=== PATIENT | female | born 1940 | race Caucasian/White ===

== ENCOUNTER → 2019-10-23 | Outpatient (CLI) | payer MEDICARE ==
[2019-05-29 11:00] VITALS: BP 116/63
[~2019-10-23] MED LIST: ACET325T9 PO; ALEN70TA6 PO; ANAS1TAB PO; ASPI-482 PO; BISA-42 PO; CALC1TAB PO; FERR-36 PO; FURO40TA4 PO; LISI10TA2 PO; LOVA40TA2 PO; METO-239 PO; MULT-658 PO; NIAC-9 PO; NITR0.4T22 SL; OMEG1CAP27 PO; PANT40TA77 PO; POLY15DR27 OU; POTA10TA12 PO; PROP15DR EACHEYE
[2019-10-23 09:49] LABS: BASO % 1 % (0-3); EOS % 1 % (0-3); HEMATOCRIT 39.1 % (36.0-47.0); HEMOGLOBIN 13.1 g/dL (12.0-15.5); LYMPH # 1.2 x10^3/uL (1.0-4.8); LYMPH % 36 % (24-48); MEAN CORPUSCULAR HEMOGLOBIN 30 pg (25-35); MEAN CORPUSCULAR HGB CONC 33 g/dL (31-37); MEAN CORPUSCULAR VOLUME 91 fL (79-100); MONO # 0.4 x10^3/uL (0.0-1.1); MONO % 10 % (0-9); NEUT # 1.7 x10^3/uL (1.8-7.7); NEUT % 52 % (31-73); PLATELET COUNT 224 x10^3/uL (140-400); RED BLOOD COUNT 4.32 x10^6/uL (3.50-5.40); RED CELL DISTRIBUTION WIDTH 14.5 % (11.5-14.5); WHITE BLOOD COUNT 3.4 x10^3/uL (4.0-11.0)
== END ==
LOC: ONCLAB 09:21
PROVIDERS: ATTEND Internal Medicine Hematology & Oncology
DX: D50.9 Iron deficiency anemia, unspecified (principal)
CPT/HCPCS: 36415; 82728; 83540; 83550; 85025

== ENCOUNTER → 2019-12-05 | Outpatient (CLI) | payer MEDICARE ==
[2019-05-29 11:00] VITALS: BP 116/63
--- NOTE | 2019-12-05 11:28 | CARD ---
MR#: [id number] Date of Study: 12/05/2019 Ordering Physician: SHELDON VEE, Referring Physician: SHELDON VEE, Tech: Georgie Bryant APPROVED REPORT EXAM: Two-dimensional and M-mode echocardiogram with Doppler and color Doppler. Other Information Quality : AverageHR: 62bpm Technically limited study due to body habitus. INDICATION Aortic Valve Disease Hernia surgery -2019, Aortic Aneurysm Surgery/Intervention CABG: Date: 2006 Site: [facility] RISK FACTORS Hypertension Hyperlipidemia 2D DIMENSIONS RVDd2.8 (2.9-3.5cm)Left Atrium(2D)4.6 (1.6-4.0cm) IVSd0.8 (0.7-1.1cm)Aortic Root(2D)3.9 (2.0-3.7cm) LVDd5.2 (3.9-5.9cm)LVOT Diameter2.2 (1.8-2.4cm) PWd0.7 (0.7-1.1cm)LVDs3.9 (2.5-4.0cm) FS (%) 25.5 %SV65.8 ml LVEF(%)49.8 (>50%) Aortic Valve AoV Peak Maico.140.1cm/sAoV VTI29.7cm AO Peak GR.7.9mmHgLVOT Peak Maico.108.0cm/s LVOT VTI 23.91cmAO Mean GR.4mmHg MILENA (VMAX)2.08ho1HUH (VTI)3.07cm2 AI P 1/2 Uvzq212fr Mitral Valve MV E Qkjmvycv36.4cm/sMV E Peak Gr.144mmHg MV DECEL [id number] A Roosezfj27.3cm/s MV E Mean Gr.2mmHgMV DCM64xh E/A Ratio0.4MVA (PHT)2.85cm2 TDI E/Lateral E'6.9E/Medial E'7.5 Pulmonary Valve PV Peak Kgsuukvf41.7cm/sPV Peak Grad.3mmHg Tricuspid Valve TR P. Vzvbrmsy331hm/sRAP NQORHVFX5qdVv TR Peak Gr.50dpWfQHYU04ozKg Pulmonary Vein S1 Nrgcietu14.2cm/sD2 Qllktejc08.2cm/s PVa tvqtklxt101auvm LEFT VENTRICLE The left ventricle is normal size. There is normal left ventricular wall thickness. The left ventricu lar systolic function is normal and the ejection fraction is within normal range. The Ejection Fracti on is 55%. Septal motion consistent with prior CABG. Otherwise, grossly normal wall motion. Transmitr al Doppler flow pattern is Grade I-abnormal relaxation pattern. RIGHT VENTRICLE The right ventricle is mildly dilated. There is normal right ventricular wall thickness. The right ve ntricular systolic function is normal. ATRIA The left atrium size is normal. The right atrium size is normal. The interatrial septum is intact wit h no evidence for an atrial septal defect or patent foramen ovale as noted on 2-D or Doppler imaging. AORTIC VALVE The aortic valve is calcified but opens well. Doppler and Color Flow revealed mild to moderate aortic regurgitation. There is no significant aortic valvular stenosis. Calculated aortic valve area is 2.9 7 cm2 with maximum pressure gradient of 8 mmHg and mean pressure gradient of 4 mmHg. MITRAL VALVE The mitral valve is normal in structure and function. There is no evidence of mitral valve prolapse. There is no mitral valve stenosis with an mean gradient of 2 mmHg. Doppler and Color-flow revealed mi ld mitral regurgitation. TRICUSPID VALVE The tricuspid valve is normal in structure and function. Doppler and Color Flow revealed trace to mil d tricuspid regurgitation with an estimated PAP of 32 mmHg. There is no tricuspid valve stenosis. PULMONIC VALVE The pulmonic valve is not well visualized. Doppler and Color Flow revealed trace pulmonic valvular re gurgitation. There is no pulmonic valvular stenosis. GREAT VESSELS The aortic root is mildly enlarged. The ascending aorta is Mildly dilated at 4.0 cm The IVC was not v isualized. PERICARDIAL EFFUSION There is no evidence of significant pericardial effusion. Critical Notification Critical Value: No <Conclusion> The left ventricular systolic function is normal and the ejection fraction is within normal range. Th e Ejection Fraction is 55%. Septal motion consistent with prior CABG. Otherwise, grossly normal wall motion. Doppler and Color Flow revealed mild to moderate aortic regurgitation. Doppler and Color Flow revealed trace to mild tricuspid regurgitation with an estimated PAP of 32 mmH g. The ascending aorta is Mildly dilated at 4.0 cm Signed by : Sheldon Katrapati, Electronically Approved : 12/05/2019 11:28:10
== END | disposition home or self-care (01) ==
LOC: ECHO 09:17
PROVIDERS: ATTEND Internal Medicine Cardiovascular Disease
DX: I08.3 Combined rheumatic disorders of mitral, aortic and tricuspid valves (principal); I71.2 Thoracic aortic aneurysm, without rupture
CPT/HCPCS: 93306

== ENCOUNTER → 2020-06-05 | Outpatient (CLI) | payer MEDICARE ==
[2019-05-29 11:00] VITALS: BP 116/63
[~2020-06-05] MED LIST changes: -ALEN70TA6 PO; +ALEN70TA71 PO; +CONTRAST GIVEN. MC PRN; +IOHEXOL 350 MG/ML 100 ML VIAL. IV ONE; +IOHEXOL 350 MG/ML 100 ML VIAL. ONE; +LISI10TA16 PO; -LISI10TA2 PO
[2020-06-05 11:37] LABS: CREATININE 1.1 mg/dL (0.6-1.0); GFR 47.9
--- NOTE | 2020-06-05 12:35 | RAD ---
CT angiography of the chest 06/05/2020 INDICATION: Ascending thoracic aortic aneurysm COMPARISON STUDY: CT of the chest without contrast May 22, 2019 TECHNIQUE: Multidetector CTA imaging of the chest was performed following the administration of IV co ntrast. 3-D reconstructions of thoracic vasculature were created on an independent workstation and re viewed. FINDINGS: There is an ascending thoracic aortic aneurysm measuring 4.2 cm the level the main pulmonar y artery. The thoracic aorta measures 3.4 cm at the sinotubular junction. The thoracic aorta measures 2.6 cm at the level of the left subclavian artery. The descending thoracic aorta is normal in course and caliber. There is no dissection. There is a "bovine" configuration of the aortic arch. Arch vess els. Be grossly patent. There is some kinking of the left common carotid artery secondary to tortuosi ty. More mild kinking of the right brachiocephalic artery is also present. Heart size is normal. No pericardial effusion is seen. [place] coronary calcification is noted. CORTES t o LAD bypass noted. Note patency of this bypass is not assessed via this exam. No pathologically enla rged mediastinal lymph nodes are seen. Mild dilatation of the bilateral proximal pulmonary arteries i s seen which can be associated pulmonary arterial hypertension. There is no pneumothorax or pleural e ffusion. No acute-appearing pulmonary infiltrates are identified. There are scattered solid and groun dglass nodular opacities, all which are less than 1 cm in size, in the basilar left lower lobe. Refer ence images in the seen anteriorly on axial image 80. Multiple similar nodules can be seen immediatel y inferior to this. There is a reference 2 mm nodule in the right upper lobe (axial image 25). Scatte red 5 mm groundglass and smaller nodules are seen throughout the right lower lobe and to a lesser deg ree the right upper lobe. Reference nodule can be seen on axial image 53. The previously seen large h iatal/paraesophageal hernia is reduced in the interim. No acute changes in the upper abdomen are karyna ntified. No acute osseous changes are identified. IMPRESSION: 1. Ascending thoracic aortic aneurysm measuring 4.2 cm the level of main pulmonary artery 2. Interval reduction of the previously seen large hiatal/paraesophageal hernia 3. Scattered bilateral, sub-5 mm groundglass pulmonary nodules. The appearance is similar to comparis on study. Findings could represent infectious or inflammatory process, given short interval between s tudies. Consider 3 month follow-up CT chest. 4. Mild dilatation of the pulmonary arteries. A component of pulmonary hypertension may be present. CT DOSING PQRS STATEMENT: One or more of the following individualized dose reduction techniques were utilized for this examinat ion: 1. Automated exposure control 2. Adjustment of the mA and/or kV according to patient size 3. Use of iterative reconstruction technique Electronically signed by: Marciano Cole MD (06/05/2020 12:33 PM) [id number]
== END ==
LOC: CT 09:57
PROVIDERS: ATTEND Internal Medicine Cardiovascular Disease
DX: I71.2 Thoracic aortic aneurysm, without rupture (principal); R91.1 Solitary pulmonary nodule
CPT/HCPCS: 36415; 71275; 82565; 84520; Q9967

== ENCOUNTER → 2020-07-29 | Outpatient (CLI) | payer MEDICARE ==
[2019-05-29 11:00] VITALS: BP 116/63
[~2020-07-29] MED LIST changes: -CONTRAST GIVEN. MC PRN; -IOHEXOL 350 MG/ML 100 ML VIAL. IV ONE; -IOHEXOL 350 MG/ML 100 ML VIAL. ONE
--- NOTE | 2020-08-01 12:24 | RAD ---
INDICATION: 79 years of age asymptomatic female patient presents for screening mammography. TECHNIQUE: Full field craniocaudal and mediolateral oblique images of both breasts were obtained usi ng digital technique with tomosynthesis and also analyzed with computer-aided detection software. COMPARISON: 06/28/2009. BREAST COMPOSITION: Category B: There are scattered fibroglandular densities. FINDINGS: Benign calcifications are present. The parenchymal pattern appears stable. No suspicious masses, microcalcifications or architectural distortion is present to suggest malignanc y in either breast. The visualized axillae are unremarkable. IMPRESSION: No mammographic evidence of malignancy. RECOMMENDATION: Annual screening mammography is recommended, unless clinically indicated sooner based on symptoms or change in physical exam. BIRADS 2: BENIGN This study was interpreted with the benefit of Computerized Aided Detection (CAD). Patient information is entered into the reminder system with a target due date for the next screening mammogram. Mammography is the most sensitive method for finding small breast cancers, but it does not detect the m all and is not a substitute for careful clinical examination. A negative mammogram does not negate a clinically suspicious finding and should not result in delay in biopsying a clinically suspicious a bnormality. "Our facility is accredited by the [employer] Mammography Program." Electronically signed by: Adolfo Medina MD (08/01/2020 12:21 PM) [facility]
== END ==
LOC: MAMMO 09:52
PROVIDERS: ATTEND Internal Medicine Hematology & Oncology
DX: Z12.31 Encounter for screening mammogram for malignant neoplasm of breast (principal)
CPT/HCPCS: 77063; 77067

== ENCOUNTER → 2021-01-08 | Outpatient (CLI) | payer MEDICARE ==
[2019-05-29 11:00] VITALS: BP 116/63
--- NOTE | 2021-01-08 12:24 | RAD ---
EXAM: CT OF THE CHEST WITHOUT CONTRAST. HISTORY: Ascending aortic aneurysm. TECHNIQUE: Computed tomography of the chest was performed without intravenous contrast. One or more o f the following individualized dose reduction techniques were utilized for this examination: 1. Automated exposure control. 2. Adjustment of the mA and/or kV according to patient size. 3. Use of iterative reconstruction technique. COMPARISON: 06/05/2020. FINDINGS: Images of the upper abdomen reveal a benign-appearing cyst in the left kidney measuring 3.0 cm. Bilateral hydronephrosis is mild to moderate. The gallbladder is surgically absent. A small hiat al hernia age contains mostly fat. There is some wall thickening of the distal esophagus. Bone window s reveal no suspicious lesions. The ascending aorta measures 4.5 x 4.3 cm. There is no clear interval change. The proximal arch measu res 4.1 cm. The distal arch measures 2.9 cm. The distal arch measures 2.7 cm. There are no pathologically enlarged mediastinal or axillary lymph nodes. There is no pleural or jason cardial effusion. The heart is not enlarged. There are changes of coronary artery bypass grafting. A 4 mm nodule in the right lower lobe on image 39 is stable. Another in the left lower lobe on image 46 measures 5 mm. Several other small groundglass nodules throughout the other lobes measure <4 mm. T here is a calcified granuloma in the left upper lobe. IMPRESSION: 1. Stable ascending aortic ectasia at 0.5 x 4.3 cm. 2. Scattered bilateral small groundglass nodules measure 5 mm or less, are stable and likely postinfl ammatory. Attention on further follow-up. 3. Bilateral mild to moderate hydronephrosis. CT of the abdomen/pelvis could further evaluate if the diagnosis is not already known. 4. Small hiatal hernia. Wall thickening of the distal esophagus suggests esophagitis. Electronically signed by: Miranda Levin MD (01/08/2021 12:21 PM) [id number]
== END ==
LOC: CT 08:33
PROVIDERS: ATTEND Internal Medicine Cardiovascular Disease
DX: I71.2 Thoracic aortic aneurysm, without rupture (principal); J84.10 Pulmonary fibrosis, unspecified; K44.9 Diaphragmatic hernia without obstruction or gangrene; N13.30 Unspecified hydronephrosis; Z90.49 Acquired absence of other specified parts of digestive tract; Z95.1 Presence of aortocoronary bypass graft
CPT/HCPCS: 71250

== ENCOUNTER → 2021-07-02 | Outpatient (CLI) | payer BC, MEDICARE ==
[2019-05-29 11:00] VITALS: BP 116/63
[~2021-07-02] MED LIST changes: +REGADENOSON 0.4 MG/5 ML DISP.SYRIN. IV ONE
--- NOTE | 2021-07-02 16:22 | RAD ---
MR#: [id number] Date of Study: 07/02/2021 Ordering Physician: SHELDON VEE, Referring Physician: AMAN HANLEY Tech: RT Emma (R) (N) APPROVED REPORT Test Type: Pharmacological Stress Nurse/Tech: Jaime Skinner RN Test Indications: CAD Cardiac History: CABG 2006, HTN Medications: See Electronic Medical Record Medical History: See Electronic Medical Record Resting ECG: SR Resting Heart Rate: 66 bpm Resting Blood Pressure: 161/53mmHg Pretest Chest Pain: None Nurse/Tech Notes Lungs CTA, S1S2 Consent: The procedure was explained to the patient in lay terms. Informed consent was witnessed. Robert eout was entered into [employer]. History and Stress Test performed by RT Emma (R) (N) Pharm. Details Pharmacologic stress testing was performed using 0.4mg per 5ml of regadenoson given intravenously ove r 7-10 seconds. Stress Symptoms No chest pain or symptoms. POST EXERCISE Reason for Termination: Infusion complete Max HR: 98 bpm Max Blood Pressure: 122/56mmHg Blood Pressure response to exercise: Normal blood pressure response during stress. Heart Rate response to exercise: normal response Chest Pain: No. Arrhythmia: No. ST Change: No. INTERPRETATION Stress EKG Conclusion: Baseline EKG showed sinus rhythm. No ischemic changes at peak stress. No arr hythmias. Imaging Protocol IMAGE PROTOCOL: Rest Tc-99m/stress Tc-99m 1 day Rest: Stress: Viability: Radiopharm.Tc99m FabvdhamsTg80q Sestamibi Amyh06xNo 31mCi Duration 15min. 10min. Img Date 07/02/2021 07/02/2021 Inj-Img Iyte44etb. 60min. Rest Admin Site:IV - Right AntecubitalAdministrator:DORIS Jay, ARRT (R)(N) Stress Admin Site: IV - Right AntecubitalAdministrator: DORIS Jay, ARRT (R)(N) STRESS DATA End Diast. Vol.76.0mlAv. Heart Rate81.0bpm End Syst. Vol.14.0mlCO Index BSA0.0L/min Myocardial Gpkr162.0gEject. Mifwgtwk65.0% Stress Rates Pk. Fill Rate2.47EDV/secLVtime Pk. Fill 78.38msec Pk. Empty Rate3.80ESV/secLVtime Pk. Wgmxg877.08msec 1/3 Pk. Fill1.76EDV/sec Stress Scores Regional WT0.00Summed WT0.00 Regional WM0.00Summed WM3.00 LV Perfusion Scintigraphic images showed small fixed defect involving the anteroapical wall consistent with prior myocardial infarction without any reversibility. Wall Motion Normal left ventricle systolic function with ejection fraction calculated at 82%. LV Perf. Quant 17 Seg. SSS6.00 17 Seg. SRS6.00 17 Seg. SDS0.00 Stress Defect Extent (% LAD)24.40Rest Defect Extent (% LAD)29.40Rev. Defect Extent (% LAD)0.00 Stress Defect Extent (% LCX) 0.00Rest Defect Extent (% LCX)0.00Rev. Defect Extent (% LCX)0.00 Stress Defect Extent (% RCA)0.00Rest Defect Extent (% RCA)0.00Rev. Defect Extent (% RCA)0.00 Stress Defect Extent (% STACI)9.60Rest Defect Extent (% STACI)13.00Rev. Defect Extent (% STACI)0.00 Conclusion 1. Regadenoson cardioisotope stress test showed small anteroapical wall infarct without any significa nt ischemia. 2. Normal left ventricular systolic function with ejection fraction calculated at 82%. 3. Low risk for cardiac events. Signed by : Omer Jones, Electronically Approved : 07/02/2021 16:22:30
--- NOTE | 2021-07-02 16:25 | CARD ---
MR#: [id number] Date of Study: 07/02/2021 Ordering Physician: SHELDON VEE, Referring Physician: SHELDON VEE, Tech: Chelly Brown [facility] APPROVED REPORT EXAM: Two-dimensional and M-mode echocardiogram with Doppler and color Doppler. Other Information Quality : AverageHR: 58bpm Rhythm : NSR INDICATION RISK FACTORS Hypertension Hyperlipidemia 2D DIMENSIONS RVDd3.5 (2.9-3.5cm)Left Atrium(2D)5.2 (1.6-4.0cm) IVSd0.8 (0.7-1.1cm)Aortic Root(2D)4.0 (2.0-3.7cm) LVDd4.7 (3.9-5.9cm)LVOT Diameter2.4 (1.8-2.4cm) PWd0.8 (0.7-1.1cm)LVDs3.2 (2.5-4.0cm) FS (%) 31.9 %SV59.9 ml LVEF(%)59.9 (>50%) Aortic Valve AoV Peak Maico.125.0cm/sAoV VTI30.0cm AO Peak GR.6.3mmHgLVOT Peak [place]ico.111.5cm/s AO Mean GR.3mmHgAVA (VMAX)4.15cm2 AI P 1/2 Hgsq643yl Mitral Valve MV E Qmcvpfaw40.3cm/sMV DECEL WMQD887rz MV A Xzxfjrmg34.8cm/sE/A Ratio0.6 Pulmonary Valve PV Peak Ralxslin07.1cm/s Tricuspid Valve TR P. Vkhumvkd944fx/sTR Peak Gr.21mmHg LEFT VENTRICLE The left ventricle is normal size. There is normal left ventricular wall thickness. The left ventricu lar systolic function is normal. Estimated ejection fraction 60%. There is normal LV segmental wall motion. Transmitral Doppler flow pattern is Grade I-abnormal relaxation pattern. RIGHT VENTRICLE The right ventricle is normal size. There is normal right ventricular wall thickness. Systolic functi on is mildly reduced. ATRIA The left atrium size is normal. The right atrium size is normal. The interatrial septum is intact wit h no evidence for an atrial septal defect or patent foramen ovale as noted on 2-D or Doppler imaging. AORTIC VALVE The aortic valve is normal in structure and function. Doppler and Color Flow revealed mild aortic reg urgitation. There is no significant aortic valvular stenosis. MITRAL VALVE The mitral valve is normal in structure and function. There is no evidence of mitral valve prolapse. There is no mitral valve stenosis. Doppler and Color-flow revealed mild mitral regurgitation. TRICUSPID VALVE The tricuspid valve is normal in structure and function. Doppler and Color Flow revealed mild tricusp id regurgitation. Estimated PAP 25-30 mmHg. There is no tricuspid valve stenosis. PULMONIC VALVE The pulmonary valve is normal in structure and function. Doppler and Color Flow revealed trace to mil d pulmonic valvular regurgitation. GREAT VESSELS The aortic root is mildly enlarged. The ascending aorta is Mildly dilated. Due to poor image quality, the IVC could not be assessed. PERICARDIAL EFFUSION There is no evidence of significant pericardial effusion. Critical Notification Critical Value: No <Conclusion> The left ventricular systolic function is normal. Estimated ejection fraction 60%. There is normal LV segmental wall motion. Transmitral Doppler flow pattern is Grade I-abnormal relaxation pattern. Mild aortic regurgitation. Mild mitral regurgitation. Mild tricuspid regurgitation. Estimated PAP 25-30 mmHg. There is no evidence of significant pericardial effusion. Signed by : Omer Jones, Electronically Approved : 07/02/2021 16:24:51
== END ==
LOC: NM 07:41
PROVIDERS: ATTEND Internal Medicine Cardiovascular Disease
DX: I08.8 Other rheumatic multiple valve diseases (principal); I21.9 Acute myocardial infarction, unspecified; I25.10 Atherosclerotic heart disease of native coronary artery without angina pectoris; I71.2 Thoracic aortic aneurysm, without rupture
CPT/HCPCS: 78452; 93017; 93306; A9500; J2785; C8929

== ENCOUNTER → 2021-07-29 | Outpatient (CLI) | payer BC, MEDICARE ==
[2019-05-29 11:00] VITALS: BP 116/63
[~2021-07-29] MED LIST changes: -REGADENOSON 0.4 MG/5 ML DISP.SYRIN. IV ONE
--- NOTE | 2021-07-29 15:51 | RAD ---
INDICATION: 80 years of age asymptomatic female patient presents for screening mammography. She repor ts a family history of breast cancer. Personal history of left breast cancer diagnosed in 2010 treate d with lumpectomy. TECHNIQUE: Full field craniocaudal and mediolateral oblique images of both breasts were obtained usi ng digital technique with tomosynthesis. COMPARISON: Prior mammographic imaging dating back to 07/29/2020. BREAST COMPOSITION: Category B: There are scattered fibroglandular densities. FINDINGS: The parenchymal pattern appears stable. Benign calcifications are present. No suspicious masses, microcalcifications or architectural distortion is present to suggest malignanc y in either breast. The visualized axillae are unremarkable. IMPRESSION: No mammographic evidence of malignancy. RECOMMENDATION: Annual screening mammography is recommended, unless clinically indicated sooner based on symptoms or change in physical exam. BIRADS 2: BENIGN Patient information is entered into the reminder system with a target due date for the next screening mammogram. Mammography is the most sensitive method for finding small breast cancers, but it does not detect the m all and is not a substitute for careful clinical examination. A negative mammogram does not negate a clinically suspicious finding and should not result in delay in biopsying a clinically suspicious a bnormality. "Our facility is accredited by the [employer] Mammography Program." Electronically signed by: Damon Puente DO (07/29/2021 3:49 PM) [id number]
== END ==
LOC: MAMMO 12:49
PROVIDERS: ATTEND Physician Assistant
DX: Z12.31 Encounter for screening mammogram for malignant neoplasm of breast (principal)
CPT/HCPCS: 77063; 77067